=== PATIENT | male | born 2000 | race African-American/Black ===

== ENCOUNTER 2019-10-31 16:27 | Emergency (ER) | payer SELFPAY ==
[~2019-10-31] VITALS: Ht 193 cm; Wt 90.0 kg
[2019-10-31 16:31] VITALS: TEMP 98.4
[2019-10-31] MEDS ORDERED: MOTRIN 800800 MG/TAB PO (17:26)
[2019-10-31] MEDS ORDERED: FLEXERIL 1010 MG/TAB PO (17:26)
[2019-10-31] MEDS ORDERED: LIDODERM 5% PATC1 EA TP (17:26)
[2019-10-31 17:52] VITALS: BP 130/70; PULSE 80
== END 2019-10-31 17:52 | disposition home or self-care (01) ==
LOC: COL.ER 16:27
DX: S33.9XXA Sprain of unspecified parts of lumbar spine and pelvis, initial encounter (principal); M62.830 Muscle spasm of back; X50.0XXA Overexertion from strenuous movement or load, initial encounter; Y93.67 Activity, basketball
CPT/HCPCS: J1885